=== PATIENT | male | born 1980 | race Two or more races ===

== ENCOUNTER 2018-12-19 03:43 | Emergency (ER) | payer SELFPAY ==
[~2018-12-19] VITALS: Ht 167.6 cm; Wt 79.4 kg
[2018-12-19] MEDS ORDERED: MVI in SODIUM CHLORIDE 0.9% 1,010 ML IV ONE (03:56)
[2018-12-19] MEDS ORDERED: ONDANSETRON HCL 4 MG/2 ML VIAL IV ONE (04:00)
[2018-12-19] MEDS ORDERED: SODIUM CHLORIDE 0.9% 1,000 ML IV ONE ×2 (04:00→08:00)
[2018-12-19] MEDS ORDERED: THIAMINE 100mg/ml INJ (200mg/2ml VIAL) IV ONE (04:00)
[2018-12-19 04:13] LABS: Eosinophils # (auto) 0 uL; Lymphocytes # (auto) 0.9 uL; Neutrophils # (auto) 20.1 uL; White Blood Cell 22.5 10^3/uL (4.4-10.8)
[2018-12-19 04:16] LABS: Basophils # (auto) 0.1 uL; Basophils % (auto) 0.3 % (0.0-2.0); Hematocrit 54.4 % (41.0-53.0); Hemoglobin 18.8 g/dL (13.5-17.5); Mean Corpuscular Hgb Conc. 34.5 g/dL (32.0-36.0); Mean Corpuscular Volume 89.8 fL (80.0-100.0); Monocytes # (auto) 1.5 uL; Monocytes % (auto) 6.5 % (0.0-12.0); Neutrophils % (auto) 89.2 % (37.0-80.0); Nucleated Red Blood Cells % 0.1 %; Platelet Count (auto) 370 10^3/uL (140-450); Red Blood Cells 6.05 10^6/uL (4.5-5.90); Red Cell Distribution Width 13.9 % (11.8-14.3)
[2018-12-19 04:34] LABS: Anion Gap 23 (5-15); BUN/Creatinine Ratio 9.4; Blood Alcohol < 3.0 mg/dL (0-5); Blood Urea Nitrogen 18 mg/dL (7-18); Calcium 10.3 mg/dL (8.5-10.1); Carbon Dioxide 15 mmol/L (21-32); Chloride 103 mmol/L (98-107); GFR African American 51 mL/min; GFR Non-African American 42 mL/min; Glucose 161 mg/dL (74-106); Sodium 141 mmol/L (136-145)
[2018-12-19 05:44] LABS: Amphetamine Screen, Urine POSITIVE (NEGATIVE); Barbiturate Scree,Urine NEGATIVE (NEGATIVE); Benzodiazephine Screen, Urine NEGATIVE (NEGATIVE); Cannabinoid Screen, Urine POSITIVE (NEGATIVE); Cocaine Screen, Urine NEGATIVE (NEGATIVE); Opiate Scree,Urine NEGATIVE (NEGATIVE); Phencyclidine Screen, Urine NEGATIVE (NEGATIVE)
[2018-12-19] MEDS ORDERED: LORazepam 0.5 MG TAB PO ONE (07:45)
[2018-12-19 08:14] VITALS: BP 126/85
[2018-12-19] MEDS ORDERED: cefTRIAXone 1GM/50ML D5W 50 ML IV ONE ×2 (08:30)
== END 2018-12-19 09:22 | disposition home or self-care (01) ==
LOC: EDBD 03:43 → ER 03:49
DX: E86.0 Dehydration (principal); F12.10 Cannabis abuse, uncomplicated
CPT/HCPCS: 36415; 80048; 80307; 80320; 85025; 96361; 96365; 96375; 99283; J0696; J2405; J3411; J3475

== ENCOUNTER 2020-06-28 20:49 | Emergency (ER) | payer SELFPAY ==
[~2020-06-28] VITALS: Ht 167.6 cm; Wt 77.1 kg
[2020-06-28 23:08] LABS: Basophils # (auto) 0.1 10 ^3/uL (0-0.2); Basophils % (auto) 1.3 % (0.0-2.0); Eosinophils # (auto) 0.2 10 ^3/uL (0-0.8); Hematocrit 48.1 % (41.0-53.0); Hemoglobin 16.6 g/dL (13.5-17.5); Lymphocytes # (auto) 2.3 10 ^3/uL (0.4-5.4); Mean Corpuscular Hemoglobin 30.9 pg (28.0-32.0); Mean Corpuscular Hgb Conc. 34.5 g/dL (32.0-36.0); Mean Corpuscular Volume 89.4 fL (80.0-100.0); Monocytes # (auto) 0.9 10 ^3/uL (0-1.3); Neutrophils # (auto) 4.7 10 ^3/uL (1.6-8.6); Neutrophils % (auto) 57.7 % (37.0-80.0); Nucleated Red Blood Cells % 0.2 %; Platelet Count (auto) 355 10^3/uL (140-450); Red Blood Cells 5.38 10^6/uL (4.5-5.90); Red Cell Distribution Width 13.5 % (11.8-14.3); White Blood Cell 8.1 10^3/uL (4.4-10.8)
[2020-06-28 23:28] VITALS: BP 115/79
[2020-06-28 23:30] LABS: Albumin 3.6 g/dL (3.4-5.0); Anion Gap 5 (5-15); Blood Urea Nitrogen 14 mg/dL (7-18); Calcium 8.7 mg/dL (8.5-10.1); Carbon Dioxide 27 mmol/L (21-32); Chloride 108 mmol/L (98-107); Glucose 128 mg/dL (74-106); Magnesium 2.3 mg/dL (1.6-2.6); Potassium 3.8 mmol/L (3.5-5.1); Sodium 140 mmol/L (136-145)
[2020-06-28 23:36] LABS: Alanine Aminotransferase 70 U/L (16-61); Alkaline Phosphatase 96 U/L (45-117); Aspartate Aminotransferase 29 U/L (15-37); BUN/Creatinine Ratio 15.9; Bilirubin, Total 0.4 mg/dL (0.2-1.0); GFR African American 124 mL/min; GFR Non-African American 102 mL/min; Total Protein 7.2 g/dL (6.4-8.2)
== END 2020-06-29 00:13 | disposition home or self-care (01) ==
LOC: ER 20:50
DX: R07.89 Other chest pain (principal); J06.9 Acute upper respiratory infection, unspecified; F17.210 Nicotine dependence, cigarettes, uncomplicated
CPT/HCPCS: 36415; 71045; 80053; 83735; 84443; 84484; 85025; 93005

== ENCOUNTER 2023-01-09 03:20 | Emergency (ER) | payer MEDICAID, OTHER ==
[~2023-01-09] VITALS: Ht 170.2 cm; Wt 77.8 kg
[2023-01-09 04:22] VITALS: BP 99/61; PULSE 80; RESP 16; TEMP 97.9; O2SAT 95
[2023-01-09] MEDS ORDERED: VALA500T33 PO (04:47)
[2023-01-09] MEDS ORDERED: GABA100C PO (04:47)
== END 2023-01-09 04:59 | disposition home or self-care (01) ==
LOC: ER 03:20
DX: B02.9 Zoster without complications (principal); F17.210 Nicotine dependence, cigarettes, uncomplicated; F12.90 Cannabis use, unspecified, uncomplicated